=== PATIENT | male | born 1945 | race Caucasian/White ===

== ENCOUNTER 2018-03-30 10:49 | Day surgery (SDC) | payer MEDICARE ==
[~2018-03-30] VITALS: Ht 172.7 cm; Wt 86.4 kg
[~2018-03-30 10:49] MED LIST: AMLO5 PO
== END 2018-03-30 12:55 | disposition home or self-care (01) ==
LOC: ORSCSDS 10:49
PROVIDERS: Internal Medicine Gastroenterology
PROC: 0DBL8ZX Excision of Transverse Colon, Via Natural or Artificial Opening Endoscopic, Diagnostic (ICD-10-PCS; principal; 2018-03-30 12:45)
PROC: 3E0H8GC Introduction of Other Therapeutic Substance into Lower GI, Via Natural or Artificial Opening Endoscopic (ICD-10-PCS; principal; 2018-03-30 12:45)
PROC: 0DBK8ZX Excision of Ascending Colon, Via Natural or Artificial Opening Endoscopic, Diagnostic (ICD-10-PCS; principal; 2018-03-30 12:45)
DX: Z12.11 Encounter for screening for malignant neoplasm of colon (principal); D12.2 Benign neoplasm of ascending colon; D12.3 Benign neoplasm of transverse colon; K64.8 Other hemorrhoids; K57.30 Diverticulosis of large intestine without perforation or abscess without bleeding; Z86.010 Personal history of colon polyps; E78.1 Pure hyperglyceridemia
CPT/HCPCS: 88305

== ENCOUNTER 2018-05-13 13:22 | Inpatient (IN) | payer MEDICARE ==
[~2018-05-13] VITALS: Ht 172.7 cm; Wt 83.9 kg
[2018-05-19 04:21] LABS: BASOPHILS ABSOLUTE AUTO 0.01 K/mm3 (0.00-0.23); BASOPHILS PERCENT AUTO 0 % (0-2); EOSINOPHILS PERCENT AUTO 0 % (0-6); Hematocrit 36.5 % (37.0-53.0); Hemoglobin 12.1 g/dL (13.5-17.5); IMMATURE GRAN ABSOLUTE AUTO 0.19 K/mm3 (0.00-0.10); IMMATURE GRAN PERCENT AUTO 2 % (0-1); LYMPHOCYTES ABSOLUTE AUTO 1.33 K/mm3 (0.84-5.20); LYMPHOCYTES PERCENT AUTO 13 % (21-46); MONOCYTES ABSOLUTE AUTO 3.84 K/mm3 (0.16-1.47); MONOCYTES PERCENT AUTO 37 % (4-13); Mean Corpuscular HGB 29.2 pg (26.0-34.0); Mean Corpuscular HGB Conc 33.2 g/dL (31.5-36.5); Mean Corpuscular Volume 88 fL (80-100); NEUTROPHILS ABSOLUTE AUTO 4.89 K/mm3 (1.96-9.15); NEUTROPHILS PERCENT AUTO 48 % (41-73); Platelet Count 126 K/mm3 (150-400); RDW Coefficient Variation 12.8 % (11.7-14.2); RDW Standard Deviation 41.1 fL (35.1-46.3); Red Blood Cell Count 4.15 M/mm3 (4.30-5.90); White Blood Cell Count 10.26 K/mm3 (4.00-11.30)
[2018-05-19 04:53] LABS: Anion Gap 9 mmol/L (6-16); Blood Urea Nitrogen 10 mg/dL (8-24); Bun/Creatinine Ratio 9.1 (12.0-20.0); CO2, Blood 27 mmol/L (21-32); Calcium, Blood 7.9 mg/dL (8.5-10.1); Chloride, Blood 104 mmol/L (98-108); Glomerular Filtration Rate >60 (60-); Glucose, Blood 110 mg/dL (70-99); Potassium, Blood 3.9 mmol/L (3.5-5.5); Sodium, Blood 140 mmol/L (136-145)
[2018-05-22] MEDS ORDERED: IBUP600 PO (13:07)
== END 2018-05-22 13:30 | disposition home or self-care (01) | DRG 331 ==
LOC: SURS 05-18 05:51 → PRE IP 05-18 07:30 → SURS 05-18 11:48
PROVIDERS: Surgery
PROC: 0DTF4ZZ Resection of Right Large Intestine, Percutaneous Endoscopic Approach (ICD-10-PCS; principal; 2018-05-18 07:30)
DX: D12.2 Benign neoplasm of ascending colon (principal); K63.89 Other specified diseases of intestine; E78.1 Pure hyperglyceridemia; E66.9 Obesity, unspecified; I10 Essential (primary) hypertension; Z85.828 Personal history of other malignant neoplasm of skin; Z79.899 Other long term (current) drug therapy; Z68.28 Body mass index [BMI] 28.0-28.9, adult
CPT/HCPCS: 36415; 80048; 85025; 88307; J0295; J1100; J1200; J1650; J1885; J2001; J2250; J2405; J2710; J3010; J7120

== ENCOUNTER 2023-09-08 14:34 | Emergency (ER) | payer MEDICARE ==
[~2023-09-08] VITALS: Ht 172.7 cm; Wt 66.2 kg
[~2023-09-08 14:34] MED LIST changes: +IBUP600 PO; +VITAMIN D31000 UNIT
[2023-09-08 15:32] LABS: BASOPHILS ABSOLUTE AUTO 0.04 K/mm3 (0.00-0.23); BASOPHILS PERCENT AUTO 1 % (0-2); EOSINOPHILS ABSOLUTE AUTO 0.02 K/mm3 (0.00-0.68); EOSINOPHILS PERCENT AUTO 0 % (0-6); Hematocrit 23.7 % (37.0-53.0); Hemoglobin 7.2 g/dL (13.5-17.5); IMMATURE GRAN ABSOLUTE AUTO 0.27 K/mm3 (0.00-0.10); IMMATURE GRAN PERCENT AUTO 5 % (0-1); LYMPHOCYTES ABSOLUTE AUTO 1.63 K/mm3 (0.84-5.20); LYMPHOCYTES PERCENT AUTO 29 % (21-46); MONOCYTES ABSOLUTE AUTO 1.34 K/mm3 (0.16-1.47); MONOCYTES PERCENT AUTO 24 % (4-13); Mean Corpuscular HGB 30.3 pg (26.0-34.0); Mean Corpuscular HGB Conc 30.4 g/dL (31.5-36.5); Mean Corpuscular Volume 100 fL (80-100); NEUTROPHILS ABSOLUTE AUTO 2.32 K/mm3 (1.96-9.15); NEUTROPHILS PERCENT AUTO 41 % (41-73); NRBC ABSOLUTE 0.03 K/mm3 (0.00-0.02); NRBC Auto 0.5 /100 WBC (0.0-0.2); Platelet Count 100 K/mm3 (150-400); RDW Coefficient Variation 18.9 % (11.7-14.2); RDW Standard Deviation 65.1 fL (35.1-46.3); Red Blood Cell Count 2.38 M/mm3 (4.30-5.90); White Blood Cell Count 5.62 K/mm3 (4.00-11.30)
[2023-09-08] MEDS ORDERED: IRON18 MG PO (15:40)
[2023-09-08] MEDS ORDERED: ZYRTEC10 M2 PO (15:40)
[2023-09-08 15:44] LABS: Mean Platelet Volume 13.2 fL (9.1-12.4)
[2023-09-08 16:00] LABS: Albumin, Blood 3.6 g/dL (3.4-5.0); Albumin/Globulin Ratio 1.1 (0.8-1.8); Bilirubin, Total 0.5 mg/dL (0.1-1.0); Bun/Creatinine Ratio 14.9 (12.0-20.0); Calcium, Blood 8.5 mg/dL (8.5-10.1); Creatinine, Blood 1.21 mg/dL (0.60-1.20); Globulin, Blood 3.3 g/dL (2.2-4.0); Potassium, Blood 4.1 mmol/L (3.5-5.5); Total Protein, Blood 6.9 g/dL (6.4-8.2)
[2023-09-08 16:34] LABS: International Normalized Ratio 1.13; Prothrombin Time Results 11.8 Sec (9.7-11.5)
[2023-09-08 18:30] VITALS: BP 126/68
== END 2023-09-08 18:44 | disposition home or self-care (01) ==
LOC: ER 14:34
PROVIDERS: Physician Assistant; Student in an Organized Health Care Education/Training Program
DX: K92.1 Melena (principal); D62 Acute posthemorrhagic anemia; I10 Essential (primary) hypertension; Z79.899 Other long term (current) drug therapy; Z20.822 Contact with and (suspected) exposure to COVID-19
CPT/HCPCS: 36430; 80053; 85025; 85610; 85730; 86850; 86900; 86901; 86923; 96361; 96374; 99284-25; C9113; J7030; P9016

== ENCOUNTER → 2023-09-23 | Outpatient (CLI) | payer MEDICARE ==
[~2023-09-23] MED LIST changes: +IRON18 MG PO; +ZYRTEC10 M2 PO
[2023-09-23 16:16] LABS: BASOPHILS ABSOLUTE AUTO 0.04 K/mm3 (0.00-0.23); BASOPHILS PERCENT AUTO 1 % (0-2); EOSINOPHILS ABSOLUTE AUTO 0.01 K/mm3 (0.00-0.68); EOSINOPHILS PERCENT AUTO 0 % (0-6); Hematocrit 31.4 % (37.0-53.0); Hemoglobin 9.7 g/dL (13.5-17.5); IMMATURE GRAN ABSOLUTE AUTO 0.04 K/mm3 (0.00-0.10); IMMATURE GRAN PERCENT AUTO 1 % (0-1); LYMPHOCYTES ABSOLUTE AUTO 1.12 K/mm3 (0.84-5.20); LYMPHOCYTES PERCENT AUTO 22 % (21-46); MONOCYTES ABSOLUTE AUTO 1.77 K/mm3 (0.16-1.47); MONOCYTES PERCENT AUTO 34 % (4-13); Mean Corpuscular HGB 29.3 pg (26.0-34.0); Mean Corpuscular HGB Conc 30.9 g/dL (31.5-36.5); Mean Corpuscular Volume 95 fL (80-100); NEUTROPHILS PERCENT AUTO 42 % (41-73); Platelet Count 135 K/mm3 (150-400); RDW Coefficient Variation 16.6 % (11.7-14.2); Red Blood Cell Count 3.31 M/mm3 (4.30-5.90); White Blood Cell Count 5.18 K/mm3 (4.00-11.30)
[2023-09-23 16:18] LABS: Mean Platelet Volume 13.4 fL (9.1-12.4)
== END | disposition home or self-care (01) ==
LOC: LAB 15:50 → LAB SHORT 15:50
PROVIDERS: Family Medicine
DX: I10 Essential (primary) hypertension (principal)
CPT/HCPCS: 85025

== ENCOUNTER 2023-10-27 01:59 | Emergency (ER) | payer MEDICARE ==
[~2023-10-27] VITALS: Ht 172.7 cm; Wt 66.2 kg
[2023-10-27] MEDS ORDERED: PANT40 PO (02:41)
[2023-10-27 03:48] VITALS: BP 114/64
== END 2023-10-27 03:42 | disposition home or self-care (01) ==
LOC: ER 01:59
DX: R10.13 Epigastric pain (principal); K82.9 Disease of gallbladder, unspecified; I10 Essential (primary) hypertension; Z79.899 Other long term (current) drug therapy
CPT/HCPCS: 93005; 93010; 99284-25

== ENCOUNTER → 2024-01-05 | Outpatient (CLI) | payer MEDICARE ==
[~2024-01-05] MED LIST changes: +ELIQUIS5 M2 PO; +ENOX100I; +PANT40 PO; +SILD50TA PO; +TRIA15CR3 TOP
[2024-01-05 12:08] LABS: Hematocrit 25.8 % (37.0-53.0); Hemoglobin 8.1 g/dL (13.5-17.5); Mean Corpuscular HGB 31.8 pg (26.0-34.0); Mean Corpuscular HGB Conc 31.4 g/dL (31.5-36.5); Mean Corpuscular Volume 101 fL (80-100); Platelet Count 89 K/mm3 (150-400); RDW Coefficient Variation 19.5 % (11.7-14.2); RDW Standard Deviation 72.3 fL (35.1-46.3); Red Blood Cell Count 2.55 M/mm3 (4.30-5.90)
[2024-01-05 12:15] LABS: White Blood Cell Count 4.52 K/mm3 (4.00-11.30)
[2024-01-05 13:17] LABS: BAND PERCENT MAN 1 % (0-8); BASOPHILS PERCENT MAN 0 % (0-2); EOSINOPHILS PERCENT MAN 0 % (0-6); LYMPHOCYTES ABSOLUTE MAN 1.67 K/mm3 (0.84-5.20); LYMPHOCYTES PERCENT MAN 37 % (21-46); MONOCYTES ABSOLUTE MAN 0.85 K/mm3 (0.16-1.47); MONOCYTES PERCENT MAN 19 % (4-13); NEUTROPHILS ABSOLUTE MAN 1.98 K/mm3 (1.96-9.15); SEG NEUTROPHILS PERCENT MAN 43 % (41-73); TOTAL CELLS COUNTED 100
== END ==
LOC: LAB SHORT 11:07 → LAB 11:07
PROVIDERS: Family Medicine
DX: D50.8 Other iron deficiency anemias (principal); I10 Essential (primary) hypertension; Z79.899 Other long term (current) drug therapy
CPT/HCPCS: 82607; 82728; 83540; 83550; 85025

== ENCOUNTER → 2024-06-14 | Outpatient (CLI) | payer MEDICARE ==
[~2024-06-14] MED LIST changes: +1/2 NS 250ml250 ML; +MIRT15 PO; +Prednisone10 MG PO; +TM-VITE RX T1000 MCG PO
== END | disposition home or self-care (01) ==
LOC: LAB SHORT 16:56 → LAB 16:56
DX: R35.0 Frequency of micturition (principal)
CPT/HCPCS: 87086

== ENCOUNTER 2025-02-03 05:15 | Day surgery (SDC) | payer MEDICARE ==
[2025-02-03] VITALS (7 sets, daily range): BP systolic 103–111; BP diastolic 58–70
[2025-02-03] MEDS ORDERED: NS 250 ML IV SCH (06:30)
[2025-02-03] MEDS ORDERED: LEVSOD25 PO (07:37)
== END 2025-02-03 11:15 | disposition home or self-care (01) ==
LOC: ATC 05:15
DX: C81.28 Mixed cellularity Hodgkin lymphoma, lymph nodes of multiple sites (principal)
CPT/HCPCS: 36415; 36430; 86850; 86900; 86901; 86923; J1642; J7050; P9016

== ENCOUNTER 2025-02-24 04:19 | Day surgery (SDC) | payer MEDICARE ==
[~2025-02-24 04:19] MED LIST changes: +LEVSOD25 PO
[2025-02-24] MEDS ORDERED: NS 250 ML IV SCH (07:10)
[2025-02-24] MEDS ORDERED: Acetaminophen 325 MG TABLET PO PRN (07:10)
[2025-02-24] MEDS ORDERED: DiphenhydrAMINE HCL 25 MG Cap PO PRN (07:10)
[2025-02-24 13:38] VITALS: BP 119/74
[2025-02-24 13:52] VITALS: BP 99/65
[2025-02-24 14:52] VITALS: BP 102/64
[2025-02-24 15:50] VITALS: BP 106/58
[2025-02-24 16:49] VITALS: BP 112/74
[2025-02-24 17:17] VITALS: BP 120/74
== END 2025-02-24 17:23 ==
LOC: ATC 04:19
DX: C81.28 Mixed cellularity Hodgkin lymphoma, lymph nodes of multiple sites (principal); D64.81 Anemia due to antineoplastic chemotherapy; D70.1 Agranulocytosis secondary to cancer chemotherapy; T45.1X5A Adverse effect of antineoplastic and immunosuppressive drugs, initial encounter; D69.59 Other secondary thrombocytopenia; E03.9 Hypothyroidism, unspecified; K13.79 Other lesions of oral mucosa; Z79.52 Long term (current) use of systemic steroids; Z79.890 Hormone replacement therapy; Z79.899 Other long term (current) drug therapy
CPT/HCPCS: 36415; 36430; 86850; 86900; 86901; 86923; A9270; J1642; J7050; P9016

== ENCOUNTER 2025-03-09 06:10 | Emergency (ER) | payer MEDICARE ==
[~2025-03-09] VITALS: Ht 172.7 cm; Wt 65.8 kg
[2025-03-09 06:52] LABS: Hematocrit 19.6 % (37.0-53.0); Hemoglobin 6.1 g/dL (13.5-17.5); Mean Corpuscular HGB 30.7 pg (26.0-34.0); Mean Corpuscular HGB Conc 31.1 g/dL (31.5-36.5); Mean Corpuscular Volume 99 fL (80-100); Mean Platelet Volume 11.4 fL (9.1-12.4); Platelet Count 70 K/mm3 (150-400); RDW Coefficient Variation 18.8 % (11.7-14.2); RDW Standard Deviation 63.7 fL (35.1-46.3); Red Blood Cell Count 1.99 M/mm3 (4.30-5.90); White Blood Cell Count 2.85 K/mm3 (4.00-11.30)
[2025-03-09 07:10] LABS: Albumin, Blood 2.5 g/dL (3.4-5.0); Albumin/Globulin Ratio 0.7 (0.8-1.8); Bilirubin, Total 0.6 mg/dL (0.1-1.0); Bun/Creatinine Ratio 35.6 (12.0-20.0); Calcium, Blood 9.1 mg/dL (8.5-10.1); Creatinine, Blood 0.7 mg/dL (0.60-1.20); Globulin, Blood 3.8 g/dL (2.2-4.0); Potassium, Blood 3.4 mmol/L (3.5-5.5); Total Protein, Blood 6.3 g/dL (6.4-8.2)
[2025-03-09 07:23] LABS: BASOPHILS PERCENT MAN 0 % (0-2); EOSINOPHILS PERCENT MAN 0 % (0-6); LYMPHOCYTES ABSOLUTE MAN 0.88 K/mm3 (0.84-5.20); LYMPHOCYTES PERCENT MAN 31 % (21-46); MONOCYTES ABSOLUTE MAN 0.11 K/mm3 (0.16-1.47); MONOCYTES PERCENT MAN 4 % (4-13); MYELOCYTE ABSOLUTE MAN 0.02 K/mm3 (0.00-0.00); MYELOCYTE PERCENT MAN 1 % (0-0); NEUTROPHILS ABSOLUTE MAN 1.82 K/mm3 (1.96-9.15); SEG NEUTROPHILS PERCENT MAN 64 % (41-73); TOTAL CELLS COUNTED 100
[2025-03-09] MEDS ORDERED: NS 1,000 ML IV SCH (08:20)
--- NOTE | 2025-03-09 12:11 | NUR ---
Patient's spouse, Nicolasa stops me in the hallway and she shares about the medical issues that the patient has had and the down turn in his health since going through therapy for cancer. She explains that he has been anemic and that their lives have significantly changed since his cancer diagnosis. She tells me about thier strong [employer] myriam and how she found strength and hope form reading scripture, prayer and the support of her restorationism ([facility]). I provided therapeutic listening and a calming presence. Nicolasa voices her appreciation and the encouragement she felt from our visit. I will continue remain available.
[2025-03-09 14:15] VITALS: BP 124/80
== END 2025-03-09 14:27 | disposition home or self-care (01) ==
LOC: ER 06:10
PROVIDERS: Emergency Medicine
DX: D64.9 Anemia, unspecified (principal); I10 Essential (primary) hypertension; Z79.52 Long term (current) use of systemic steroids; Z79.890 Hormone replacement therapy
CPT/HCPCS: 36430; 80053; 85025; 86850; 86900; 86901; 86923; 99284-25; J7030; P9040

== ENCOUNTER 2025-03-16 02:13 | Day surgery (SDC) | payer MEDICARE ==
[2025-03-15 16:30] LABS: Hematocrit 23.3 % (37.0-53.0); Hemoglobin 7.7 g/dL (13.5-17.5); Mean Corpuscular HGB 30.8 pg (26.0-34.0); Mean Corpuscular Volume 93 fL (80-100); Mean Platelet Volume 11.9 fL (9.1-12.4); Platelet Count 89 K/mm3 (150-400); RDW Coefficient Variation 18.2 % (11.7-14.2); RDW Standard Deviation 55.5 fL (35.1-46.3); White Blood Cell Count 4.73 K/mm3 (4.00-11.30)
[2025-03-16] VITALS (7 sets, daily range): BP systolic 98–138; BP diastolic 61–96
[2025-03-16] MEDS ORDERED: NS 250 ML IV SCH (06:35)
[2025-03-16] MEDS ORDERED: DiphenhydrAMINE HCL 25 MG Cap PO SCH (07:30)
[2025-03-16] MEDS ORDERED: Acetaminophen 325 MG TABLET PO SCH (07:30)
== END 2025-03-16 11:11 | disposition home or self-care (01) ==
LOC: ATC 02:13
PROVIDERS: Internal Medicine Hematology & Oncology
DX: C81.28 Mixed cellularity Hodgkin lymphoma, lymph nodes of multiple sites (principal); E03.9 Hypothyroidism, unspecified; K21.9 Gastro-esophageal reflux disease without esophagitis; Z79.890 Hormone replacement therapy; Z79.899 Other long term (current) drug therapy
CPT/HCPCS: 36415; 36430; 85027; 86850; 86900; 86901; 86923; A9270; J1642; J7050; P9016

== ENCOUNTER 2025-04-03 06:15 | Day surgery (SDC) | payer MEDICARE ==
[2025-04-03] MEDS ORDERED: NS 250 ML IV SCH (07:00)
[2025-04-03] MEDS ORDERED: Acetaminophen 325 MG TABLET PO SCH (07:05)
[2025-04-03] MEDS ORDERED: DiphenhydrAMINE HCL 25 MG Cap PO SCH (07:05)
[2025-04-03 13:58] VITALS: BP 117/79
[2025-04-03 14:58] VITALS: BP 108/63
[2025-04-03 15:29] VITALS: BP 124/70
[2025-04-03 15:50] VITALS: BP 113/70
[2025-04-03 16:51] VITALS: BP 118/70
== END 2025-04-03 17:30 | disposition home or self-care (01) ==
LOC: ATC 06:15
DX: C81.28 Mixed cellularity Hodgkin lymphoma, lymph nodes of multiple sites (principal); E03.9 Hypothyroidism, unspecified; K21.9 Gastro-esophageal reflux disease without esophagitis; Z79.899 Other long term (current) drug therapy
CPT/HCPCS: 36415; 36430; 86850; 86900; 86901; 86923; A9270; J7050; P9016

== ENCOUNTER 2025-04-14 09:20 | Day surgery (SDC) | payer MEDICARE ==
[2025-04-14] MEDS ORDERED: NS 250 ML IV SCH (10:00)
[2025-04-14] MEDS ORDERED: DiphenhydrAMINE HCL 25 MG Cap PO SCH (13:15)
[2025-04-14] MEDS ORDERED: Acetaminophen 325 MG TABLET PO SCH (13:15)
[2025-04-14 13:19] VITALS: BP 115/65
[2025-04-14 13:41] VITALS: BP 100/63
[2025-04-14 14:45] VITALS: BP 97/60
[2025-04-14 15:00] VITALS: BP 97/60
[2025-04-14 15:21] VITALS: BP 107/66
[2025-04-14 16:23] VITALS: BP 103/70
== END 2025-04-14 16:50 | disposition home or self-care (01) ==
LOC: ATC 09:20
DX: C81.28 Mixed cellularity Hodgkin lymphoma, lymph nodes of multiple sites (principal); Z79.899 Other long term (current) drug therapy; Z79.890 Hormone replacement therapy
CPT/HCPCS: 36415; 36430; 85025; 86850; 86900; 86901; 86923; A9270; J7050; P9016